=== PATIENT | female | born 1955 | race Caucasian/White ===

== ENCOUNTER → 2022-11-23 | Outpatient (CLI) | payer MEDICARE, BC, SELFPAY ==
[2022-11-23 10:17] LABS: Absolute Lymphocyte Count 1.29 X10^3/uL (0.83-4.51); Absolute Neutrophil Count 3.4 X10^3/uL (2.0-7.7); Basophil# 0.02 X10^3/uL; Basophil% 0.4 % (0-1); Eosinophil# 0.02 X10^3/uL; Eosinophils% 0.4 % (0-5); Hematocrit 49.7 % (37-47); Hemoglobin 15.6 g/dL (12.0-15.0); Lymphocyte # 1.29 X10^3/ul (0.83-4.51); Lymphocyte % 25.5 % (19-41); Mean Corp Hgb Conc 31.4 g/dL (32-36); Mean Corpuscular Volume 92.4 fL (81-99); Mean Platelet Vol. 9.2 fl (6.2-12.0); Monocyte# 0.35 X10^3/uL; Monocyte% 6.9 % (0-10); NRBC Flagged by Analyzer 0 % (0-5); Neutrophil # 3.36 X10^3/uL (2.7-7.7); Neutrophil % 66.4 % (47-70); Platelet Count 304 K/mm3 (150-450); RBC Distribution Width CV 13.2 % (11.6-14.6); RBC Distribution Width SD 44.9 fl (35.1-43.9); Red Blood Count 5.38 M/mm3 (4.2-5.4); White Blood Count 5.1 K/mm3 (4.4-11.0)
[2022-11-23 10:48] LABS: BNP,B-Type NATRIURETIC PEPTIDE 15.7 pg/mL (0-100)
[2022-11-23 11:18] LABS: ALB/GLOB Ratio 1.1 RATIO (0.9-2.4); AST(SGOT) 24 U/L (15-37); Alanine Aminotransfer ALT/SGPT 24 U/L (13-56); Albumin, Serum 4.1 g/dL (3.2-5.0); Alkaline Phosphatase 99 U/L (45-117); Anion Gap 7 (5-15); BUN 20 mg/dL (7-18); BUN/Creat Ratio 24.9 RATIO (10-20); Calcium,Total 10.2 mg/dL (8.5-10.1); Chloride 104 mmol/L (98-107); EST Glomerular Filtration Rate 76 mL/min (>60); Est Glom Filt Rate - Afr Amer 92 mL/min (>60); Globulin 3.9 g/dL (2.2-4.2); Glucose 104 mg/dL (74-106); Magnesium 2.3 mg/dL (1.6-2.6); Potassium 4.8 mmol/L (3.5-5.1); Sodium Level 141 mmol/L (136-145); Thyroid Stim Hormone (TSH) 4.85 uIU/mL (0.358-3.74)
== END | disposition home or self-care (01) ==
LOC: LAB 09:58
PROVIDERS: Referring Provider Nurse Practitioner Family; Visit Provider Nurse Practitioner Family
DX: R06.09 Other forms of dyspnea (principal); I47.20 Ventricular tachycardia, unspecified; I49.1 Atrial premature depolarization; R07.9 Chest pain, unspecified; I49.3 Ventricular premature depolarization
CPT/HCPCS: 36415; 80053; 83735; 83880; 84443; 85025

== ENCOUNTER → 2022-12-01 | Outpatient (CLI) | payer MEDICARE, BC, SELFPAY ==
--- NOTE | 2022-12-01 09:36 | ECHOD_ITS ---
Reason For Study: BRADYCARDIA Procedure This was a 2D Doppler, Color Flow transthoracic echocardiogram. The exam was of adequate technical quality. Exam performed in department. Left Ventricle Normal LV size. Left ventricular systolic function is normal. The estimated ejection fraction is 60 %. No evidence for diastolic dysfunction. No regional wall motion abnormalities noted. Right Ventricle Normal RV size. Normal systolic function. Atria Normal left atrium. Normal right atrium. No doppler evidence for ASD. Mitral Valve There is no mitral annular calcification. Normal mitral valve. Mild (1+) mitral valve insufficiency. Tricuspid Valve Normal tricuspid valve. Mild tricuspid valve insufficiency. Right ventricular systolic pressure estimated to be 26 mmHg. Aortic Valve Trisinus/trileaflet aortic valve. Mild focal aortic valve calcification. Pulmonic Valve The pulmonic valve is not well visualized. Great Vessels Normal sized aortic root. Pericardium/Pleural No pericardial effusion. MMode/2D Measurements & Calculations LVIDd: 4.9 cm IVSd: 0.82 cm Ao root diam: 3.1 cm LVIDs: 3.2 cm LVPWd: 0.74 cm FS: 35.0 % LAV(MOD-sp4): 36.7 ml LVAd ap4: 24.0 cm2 SV(MOD-sp4): 35.8 ml LVLd ap4: 7.3 cm EDV(MOD-sp4): 65.4 ml EDV(sp4-el): 66.9 ml LVAs ap4: 15.0 cm2 LVLs ap4: 6.3 cm ESV(MOD-sp4): 29.6 ml ESV(sp4-el): 30.4 ml EF(MOD-sp4): 54.8 % EF(sp4-el): 54.6 % SV(sp4-el): 36.5 ml LA A4 area: 14.8 cm2 LA dimension(2D): 3.4 cm RA A4 area: 14.8 cm2 Time Measurements MV dec time: 0.28 sec Doppler Measurements & Calculations MV E max cornell: 56.2 cm/sec Lat Peak E' Cornell: 8.6 cm/sec Med Peak E' Cornell: 7.1 cm/sec MV A max cornell: 59.8 cm/sec E/E' lat: 6.5 E/E' med: 7.9 MV E/A: 0.94 MV V2 max: 73.8 cm/sec Ao V2 max: 116.7 cm/sec MV max P.2 mmHg MV dec slope: 209.8 cm/sec2 Ao max P.5 mmHg MV V2 mean: 44.8 cm/sec Ao V2 mean: 79.3 cm/sec MV mean P.89 mmHg Ao mean P.9 mmHg MV V2 VTI: 31.3 cm Ao V2 VTI: 26.6 cm AV (velocity ratio): 0.93 LV V1 max: 106.6 cm/sec MR max cornell: 406.1 cm/sec PA V2 max: 74.4 cm/sec LV V1 max P.5 mmHg MR max P.0 mmHg PA V2 mean: 47.7 cm/sec LV V1 mean P.6 mmHg LV V1 mean: 74.6 cm/sec LV V1 VTI: 24.7 cm TR max cornell: 240.9 cm/sec TR max P.2 mmHg ECHO/Echo Complete Interpretation Summary Left ventricular systolic function is normal. The estimated ejection fraction is 60 %. Mild (1+) mitral valve insufficiency. Mild tricuspid valve insufficiency. Mild focal aortic valve calcification. Right ventricular systolic pressure estimated to be 26 mmHg. No evidence for diastolic dysfunction. Comment: 2D echocardiographic images demonstrate a nonmobile appearing echodens ity in the right atrium near the interatrial septum of uncertain etiology with a differential di agnosis including echocardiographic artifact/reverberation including from a device such as an imp lantable loop recorder, however, other etiologies cannot necessarily be excluded. Ordering Physician: Cameron Dye Referring Physician: NO PCP GIVEN Performed By: Bebe Crocker RCS
== END | disposition home or self-care (01) ==
LOC: CVS 09:35
PROVIDERS: Visit Provider Nurse Practitioner Family
DX: I49.1 Atrial premature depolarization (principal); I47.20 Ventricular tachycardia, unspecified; R42 Dizziness and giddiness; R07.9 Chest pain, unspecified; I49.3 Ventricular premature depolarization
CPT/HCPCS: 93306

== ENCOUNTER → 2022-12-05 | Outpatient (CLI) | payer MEDICARE, BC, SELFPAY ==
--- NOTE | 2022-12-05 09:14 | RAD_ITS ---
INDICATION: Dyspnea on exertion. EXAMINATION/TECHNIQUE: X-RAY - XR Chest 2 Views COMPARISON: None. FINDINGS: LINES/DEVICES: Device projecting over the midline anterior chest wall at the upper sternal level. LUNGS: Mild hyperinflation. No consolidation, edema or effusion. No pneumothorax. MEDIASTINUM AND CARDIOVASCULAR STRUCTURES: Cardiac silhouette not enlarged. Aortic arch calcification. BONES AND SOFT TISSUES: Unremarkable for age. RAD/Chest PA and Lateral IMPRESSION: No acute cardiopulmonary disease. Electronically Signed: Tato Gomez MD at 0:55 EST ,
== END | disposition home or self-care (01) ==
LOC: RAD 09:14
PROVIDERS: Visit Provider Nurse Practitioner Family
DX: R06.09 Other forms of dyspnea (principal); R07.9 Chest pain, unspecified
CPT/HCPCS: 71046

== ENCOUNTER → 2023-10-14 | Outpatient (CLI) | payer MEDICARE, BC, SELFPAY ==
--- OUTSIDE RECORDS SUMMARY | 2023-10-14 11:48 | XMS RPT_ITS | CCD ---
Author Name Unknown Address [address] [place] [address] Organization [facility] Care Team Providers Care Area Supervisor Name Role Phone Mamie ISLAS, Parul Primary Care Provider JOSÉ MIGUEL RICHARDS NP Attending Unavailable JOSÉ MIGUEL RICHARDS NP Primary Care Unavailable JOSÉ MIGUEL RICHARDS MANAGER OF APPLICATION DEVELOPMENT Admitting Unavailable Unavailable Primary Care Provider Unavailabl JOSH Nash Referring Unavailable JOSH HARP Attending Unavailable RENATE MOSES M.D. Attending Unavailable SIENNA OMALLEY Attending Unavailab WINSTON Mcnair Attending Unavailable VERA PEÑA Attending Unavailable VERA PEÑA F Attending Unavailable VERA PEÑA F Attending Unavailable PARUL ADAMS M.D. Attending Unavailable Unavailable Primary Care Provider Unavailabl e BRIGITTE JACOB VERA F Attending UnavailPARUL Kamara MD Primary Care Unavailable PARUL ADAMS MD Primary Care Unavailable PEÑA VERA JACOB F Attending UnavailPARUL Kamara MD Primary Care Unavailable PEÑA VERA JACOB F Attending Unavaila VERA Gonzales PA-C F Attending UnavailPARUL Kamara MD Primary Care Unavailable PARUL ADAMS MD Primary Care Unavailable PARUL ADAMS MD Attending Unavailable PARUL ADAMS MD Primary Care Unavailable PEÑA VERA JACOB F Attending Unavaila katlin PEÑA PA-C VERA F Attending UnavailPARUL Kamara MD Primary Care Unavailable PARUL ADAMS MD Primary Care Unavailable PEÑA VERA JACOB Attending UnavailPARUL Kamara MD Primary Care Unavailable PARUL ADAMS MD Attending Unavailable VEE CURRY Attending Unavailable PEÑA, VERA F Referring Unavailable PEÑA, VERA F Primary Care Unavailable PEÑA VERA F Primary Care Unavailable VIVIAN CHERY Attending Unavailable VEE CURRY Referring Unavailable Allergies Allergy Classification Reported Allergen(s) Allergy Type Date of Onset Reaction(s) Facility (11 sources) Acetaminophen / HYDROcodone; Translations: [HYDROCODONE-ACET AMINOPHEN] Drug Allergy 7 Itching, Other (See Comments) [facility] Work Phone: (11 sources) Azithromycin; Translations: [AZITHROMYCIN] Drug Allergy 7 Itching, Other (See Comments) [facility] (11 sources) cefTRIAXone; Translations: [CEFTRIAXONE] Drug Allergy 7 Dizziness or Vertigo, Other (See Comments), Itching, Intolerance [facility] Work Phone: [phone] 2 (11 sources) Codeine; Translations: [CODEINE] Drug Allergy 7 Hives, Swelling [facility] Work Phone: [phone] 2 (3 sources) HYDROmorphone Drug Allergy 7 Itching, Swelling [facility] (3 sources) Ketorolac Drug Allergy 9 Anaphylaxis [facility] Work Phone: [phone] 2 (11 sources) Meperidine; Translations: [MEPERIDINE] Drug Allergy 7 Itching, Other (See Comments) [facility] Work Phone: [phone] 2 (12 sources) Penicillins; Translations: [PENICILLINS] Propensity to adverse reactions to drug 7 Itching, Rash, Other (See Comments), Unknown [facility] Work Phone: [phone] 2 (11 sources) Procaine; Translations: [PROCAINE] Drug Allergy 1 Hives [facility] Work Phone: [phone] (11 sources) Promethazine; Translations: [PROMETHAZINE] Drug Allergy 7 Other (See Comments), Itching, Unknown [facility] Work Phone: [phone] 2 (3 sources) Sulfonamides (Antibiotic) Propensity to adverse reactions to drug 7 Anaphylaxis [facility] Work Phone: [phone] 2 (8 sources) Ketorolac; Translations: [KETOROLAC] Drug Allergy 7 Anaphylaxis [facility] (8 sources) Sulfonamides (Antibiotic); Translations: [SULFA (SULFONAMIDE ANTIBIOTICS)] Drug Allergy 9 Anaphylaxis [facility] (1 source) Azithromycin Drug Allergy 3 [facility] (1 source) cefTRIAXone Drug Allergy 3 [facility] (1 source) Ciprofloxacin Drug Allergy 3 [facility] (1 source) HYDROmorphone Drug Allergy 3 [facility] (1 source) Ketorolac Drug Allergy 3 [facility] (1 source) Meperidine Drug Allergy 3 [facility] (1 source) Promethazine Drug Allergy 3 [facility] (1 source) Sulfonamides (Antibiotic) Drug allergy (disorder) 3 [facility] Medications Current Medications Medication Drug Class(es) Dates Sig (Normalized) Sig (Original) ALPRAZolam 0.5 mg oral tablet (3 sources) Benzodiazepine take 1 tablet by mouth at bedtime ALPRAZolam (XANAX) 0.5 MG tablet Take 0.5 mg by mouth at bedtime. 0 Active docusate sodium 100 mg oral capsule (3 sources) docusate sodium (COLACE) 100 MG capsule Take 100 mg by mouth as needed for Constipation 0 Active doxycycline hyclate 100 mg oral capsule (7 sources) Tetracycline-class Drug Start: 11-25-2021 doxycycline hyclate (VIBRAMYCIN) 100 MG capsule Completed/Discontinued Medications Medication Drug Class(es) Dates Sig (Normalized) Sig (Original) acetaminophen 325 mg / oxyCODONE hydrochloride 5 mg oral tablet (6 sources) Opioid Agonist Start: 06-30-2017 oxyCODONE-acetamin ophen (PERCOCET) 5-325 mg tablet Take 1 tablet by mouth. 0 06/30/2017 Active Problems Active Problems Problem Classification Problem Date Documented Da te Episodic/Chronic Conditions associated with dizziness or vertigo (2 sources) Dizziness and giddiness; Translations: [Dizziness and giddiness] Onset: 09-03-2023 Episodic Disorders of lipid metabolism (2 sources) Mixed hyperlipidemia; Translations: [Mixed hyperlipidemia] Onset: 2022 Chronic Diverticulosis and diverticulitis (2 sources) Diverticulitis; Translations: [Diverticulitis of intestine, part unspecified, without perforation or abscess without bleeding] Onset: 01-09-2022 01-09-2022 Chronic Esophageal disorders (1 source) Gastro-esophageal reflux disease without esophagitis; Translations: [Gastroesophageal reflux disease, unspecified whether esophagitis present] Onset: 09-22-2023 Chronic Genitourinary symptoms and ill-defined conditions (1 source) Dysuria; Translations: [Dysuria] Episodic Intestinal obstruction without hernia (2 sources) Stricture of colon; Translations: [Other intestinal obstruction unspecified as to partial versus complete obstruction] 01-09-2022 Episodic Other gastrointestinal disorders (1 source) Other dysphagia; Translations: [Esophageal dysphagia] Onset: 10-06-2023 Episodic Other nervous system disorders (1 source) Postoperative pain ; Translations: [Other acute postprocedural pain] Episodic Other nervous system disorders (1 source) Unspecified disturbances of skin sensation; Translations: [Disturbance of skin sensation] Onset: 07-01-2022 Episodic Residual codes; unclassified (3 sources) Contact with and (suspected) exposure to potentially hazardous body fluids; Translations: [Contact with and (suspected) exposure to potentially hazardous body fluids] Onset: 02-25-2022 Episodic Thyroid disorders (2 sources) Hypothyroidism, unspecified; Translations: [Hypothyroidism, unspecified] Onset: 02-16-2023 Chronic Past or Other Problems Problem Classification Problem Date Documented Da te Episodic/Chronic Abdominal pain (2 sources) Lower abdominal pain, unspecified; Translations: [Lower abdominal pain, unspecified] Onset: 06-02-2023 Episodic Other nervous system disorders (7 sources) Skin sensation disturbance; Translations: [Unspecified disturbances of skin sensation] Onset: 07-01-2022 Episodic Unclassified (1 source) *ORAL & IV* LOWER ABD PAIN Onset: 06-05-2023 Results Test Name Value Interpretation Reference Range Facil ity Vital Signs Date Time Vital Sign Value Performing Clinician Paulo ye 07-01-2022 12:01-040 Body height 172.7 cm Josh Harp MD Work Phone: [facility] 07-01-2022 12:01-0400 Body weight 65.32 kg Josh Harp MD Work Phone: [facility] 01-05-2022 11:22-0400 Body height 172.7 cm Chelsie Neves MD Work Phone: [facility] 01-05-2022 11:22-0400 Body mass index (BMI) [Ratio] 22.11 kg/m2 Chelsie Neves MD Work Phone: [facility] 01-05-2022 11:22-0400 Body temperature 97.7 [degF] Chelsie Neves MD Work Phone: [facility] 01-05-2022 11:22-0400 Body weight 65.95 kg Chelsie Neves MD Work Phone: [facility] 01-05-2022 11:22-0400 Diastolic blood pressure 76 mm[Hg] Chelsie Neves MD Work Phone: [facility] 01-05-2022 11:22-0400 Heart rate 72 /min Chelsie Neves MD Work Phone: [facility] 01-05-2022 11:22-0400 Respiratory rate 14 /min Chelsie Neves MD Work Phone: [facility] 01-05-2022 11:22-0400 SaO2% (BldA) [Mass fraction] 97 % Chelsie Neves MD Work Phone: [facility] 01-05-2022 11:22-0400 Systolic blood pressure 130 mm[Hg] Chelsie Neves MD Work Phone: [facility] Encounters Encounter Date Encounter Type Care Provider Facility Start: 10-12-2023 ambulatory VERA Roldan ity:[id number] Start: 09-22-2023 End: 09-22-2023 ambulatory VEE CURRY Facility:[id number] Start: 09-03-2023 End: 09-08-2023 ambulatory VERA PEÑA PA-C Facility:B Start: 06-05-2023 ambulatory VERA Roldan ity:UNI Start: 06-05-2023 End: 06-05-2023 Subsequent hospital visit by physician Provider [facility] Procedures Date Procedure Procedure Detail Performing Clinician Start: 09-22-2023 Follow-up visit Follow Up VEE CURRY Start: 06-05-2023 Ct abdomen & pelvis w/contrast material Vera Peña PA-C Work Phone: Start: 03-16-2023 Dxa bone density nanette dy 1/> sites axial skel Provider [facility] Start: 03-16-2023 Non-invasive physiol ogic study extremity 3 levls Provider [facility] Start: 12-31-2022 PRICILA SCREENING W ARIANE Pr ovider [facility] Start: 09-09-2022 SURGICAL PATHOLOGY Jason Moses MD Work Phone: Start: 01-19-2022 Urnls dip stick/tabl et rgnt auto w/o microscopy Chelsie Neves MD Work Phone: Start: 01-05-2022 Antibody screen Chelsie Neves MD Work Phone: Start: 01-05-2022 Basic metabolic pane l calcium total Rafapatrica Snider G[employer] T[employer]ER [email or web address] Work Phone: Start: 01-05-2022 Blood typing serologic abo Rafa Seakeeper GIMP TACKER - PRESCHOOL ASSISTANT DIRECTOR Work Phone: Start: 01-05-2022 Ecg routine ecg w/le ast 12 lds w/i&r Rafa Seakeeper GIMP TACKER - PRESCHOOL ASSISTANT DIRECTOR Work Phone: Start: 11-25-2021 Mammography Josh betts MD Work Phone: Start: 06-19-2021 Lipid 1996 panel - S geeta or Plasma Provider [facility] Plan of Treatment Date Care Activity Detail Author Start: 06-19-2026 Lipid 1996 panel - Serum or Plasma Lipid Screening [facility] Start: 06-19-2026 LIPID SCREEN LIPID SCREEN [facility] Start: 06-19-2024 DIABETES SCREEN DIABETES SCREEN [facility] Start: 06-19-2024 Diabetes Screening Diabetes Screening [facility] Start: 01-01-2024 Mammography Mammogram Screening [facility] Start: 06-04-2023 Influenza vaccination Influenza Vaccine (#1) [facility] Start: 11-25-2022 Mammography MAMMOGRAM [facility] Start: 10-04-2022 Advance Directive Discussion Advance Directive Discussion [facility] Start: 10-04-2022 Depression Assessment Depression Assessment [facility] Start: 06-04-2022 Influenza vaccination [facility] Start: 02-23-2022 End: 02-23-2022 Patient encounter procedure 02/23/2022 Office Visit Colon and Rectal Surgery Chelsie Neves MD [address] [place] [address] [facility] Start: 01-28-2022 End: 01-28-2022 Patient encounter procedure 01/28/2022 Office Visit Colon and Rectal Surgery Chelsie Neves MD [address] [place] [address] [facility] Start: 01-09-2022 End: 01-09-2022 Patient encounter procedure 01/09/2022 Appointment General Surgery Chelsie Neves MD [address] [place] [address] Arturo Patterson MD [address] [place] [address] [facility] General Surgery Start: 12-03-2021 Annual Wellness Visit (AWV) Annual Wellness Visit (AWV) [facility] Start: 2021 ADVANCE DIRECTIVE DISCUSSION ADVANCE DIRECTIVE DISCUSSION [facility] Start: 2021 BONE DENSITY BONE DENSITY [facility] Start: 2021 Pneumococcal 65+ years Vaccine (1 - PCV) Pneumococcal 65+ years Vaccine (1 - PCV) [facility] Start: 2021 Pneumococcal 65+ years Vaccine (1 of 1 - PPSV23) Pneumococcal 65+ years Vaccine (1 of 1 - PPSV23) [facility] Start: 2021 Pneumococcal Vaccine: 65+ (1 - PCV) Pneumococcal Vaccine: 65+ (1 - PCV) [facility] Start: 2021 PNEUMOCOCCAL: 65+ (1 - PCV) PNEUMOCOCCAL: 65+ (1 - PCV) [facility] Start: 10-04-2021 DEPRESSION ASSESSMENT DEPRESSION ASSESSMENT [facility] Start: 2011 Screening for osteoporosis DEXA (modify frequency per FRAX score) [facility] Start: 2006 Screening for malignant neoplasm of breast Breast cancer screen [facility] Start: 2006 Shingles Vaccine (1 of 2) Shingles Vaccine (1 of 2) [facility] Start: 2006 SHINGRIX VACCINE (1 of 2) SHINGRIX VACCINE (1 of 2) [facility] Start: 2001 COLOGUARD (FIT-DNA) COLOGUARD (FIT-DNA) [facility] Start: 2001 Colonoscopy COLONOSCOPY [facility] Start: 2001 COLORECTAL CANCER SCREENING COLORECTAL CANCER SCREENING [facility] Start: [address] COLONOGRAPHY [facility] Start: 2001 FECAL OCCULT BLOOD FECAL OCCULT BLOOD [facility] Start: 2001 Screening for malignant neoplasm of colon [facility] Start: 2001 SIGMOIDOSCOPY SIGMOIDOSCOPY [facility] Start: 1996 Lipid panel [facility] Start: 1986 Screening for malignant neoplasm of cervix [facility] Start: 1977 Screening for malignant neoplasm of cervix Pap smear [facility] Start: 1975 DTaP/Tdap/Td vaccine (1 - Tdap) DTaP/Tdap/Td vaccine (1 - Tdap) [facility] Start: 1975 Urine microalbumin profile [facility] Start: 1974 Hepatitis C screening Hepatitis C screen [facility] Start: 1971 HIV screening HIV screen [facility] Start: 1968 Depression Screen Depression Screen [facility] Start: 1961 COVID-19 Vaccine (1) COVID-19 Vaccine (1) [facility] Start: 05-20-1957 COVID-19 VACCINE (#1) COVID-19 VACCINE (#1) [facility] Start: 1956 Annual Wellness Visit (AWV) Annual Wellness Visit (AWV) [facility] Start: 1956 Hepatitis C screening Hepatitis C screen [facility] End: 01-19-2022 Bacteria identified in Urine by Culture [facility] Work Phone: Immunizations Immunization Date Immunization Notes Care Provider Reyna del valle 11-30-2017 influenza virus vacc ine, unspecified formulation Provider [facility] Payers Date Payer Category Payer Unknown [id number] 2022 Unknown ANTHEM ANTHEM ME DICARE SUPPLEMENT [id number] 2021-Present [phone] [address] [place] [address] Indemnity [id number] 2021 Medicare MEDICARE MEDICAR E A AND B [id number] 2021-Present [phone] [place] [address] Medicare [id number] 2021 Medicare [id number] 1955 Unknown [id number] [id number] 1955 Unknown [id number] 2.16.840.1.740989.3.579.2. 1956 Unknown [id number] 2.16.840.1.093124.3.579.2. 1955 Unknown [id number] 2.16.840.1.026223.3.579.2. 1955 Unknown [id number] 2.16.840.1.374913.3.579.2.62 1955 Unknown [id number] 2.16.840.1.592979.3.579.2.62 1955 Unknown [id number] 2.16.840.1.879027.3.579.2.62 1955 Unknown [id number] 2.16.840.1.544525.3.579.2.62 1955 Unknown [id number] 2.16.840.1.310577.3.579.2. 1955 Unknown [id number] 2.16.840.1.147136.3.579.2.627 1955 Unknown [id number] 2.16.840.1.462490.3.579.2.627 Medicaid [id number] Unknown [id number] 2.16.840.1.051720.3.579.2.283 Unknown [id number] Unknown [id number] 2.16.840.1.369696.3.579.2.283 Unknown [id number] 2.16.840.1.859131.3.579.2.528 Unknown [id number] 2.16.840.1.433114.3.579.2.283 Unknown [id number] 2.16.840.1.331408.3.579.2.283 Unknown [id number] 2.16.840.1.458790.3.579.2.283 Unknown [id number] [id number] Social History Date Type Detail Facility Start: 01-05-2022 Tobacco smoking stat [facility] Ex-smoker [employer] Work Phone: History of tobacco use Cigarette Smoker [facility] [employer] Work Phone: Start: 03-30-2021 End: 01-05-2022 Cigarettes smoked current (pack per day) - Reported 1.[employer] Work Phone: Start: 04-22-2021 End: 01-05-2022 Tobacco use and exposure Smokeless tobacco non-user [employer] Work Phone: Start: 05-26-2021 End: 01-05-2022 Alcohol intake Current drinker of alcohol (finding) [employer] Work Phone: Start: 01-05-2022 Tobacco Comment quit 19 years ago [facility] Work Phone: Start: 1955 Sex Assigned At Not on file [facility] [employer] Work Phone: Start: 12-26-2021 End: 07-01-2022 Exposure to SARS-CoV-2 (event) Not sure [facility] Work Phone: Start: 04-22-2021 Tobacco smoking stat us NHIS Never smoked tobacco [facility] Start: 04-24-2021 History SDOH Alcohol Comment rarely [facility] Start: 03-30-2021 End: 05-26-2021 Tobacco use panel [facility] National Score (1-10 0), lower number is lower risk Not on file [facility] Clinical Note 04-09-2023 Note Date & Type Note Facility 04-09-[address] [address] HEALTH INFORMATION MANAGEMENT OPERATIVE REPORT : [id number] Signed Patient: JENNIFER GUPTA Acct:[id number]: [id number] : 1955 Sex: F Loc: SDS ADM Date: Room/Bed: DISC Date: 02/26/23 DATE: 02/26/2023 PREOPERATIVE DIAGNOSIS: Deformity, left great toenail. POSTOPERATIVE DIAGNOSIS: Deformity, left great toenail. PROCEDURE: Biopsies left great toenail. ANESTHESIA: MAC. ESTIMATED BLOOD LOSS: Minimal. TOURNIQUET: No tourniquet. SPECIMEN: Left great toenail. HISTORY: The patient had a dark area within the left great toenail. Decision was made to remove to biopsy, rule out malignant melanoma. DESCRIPTION OF PROCEDURE: The patient was taken to the OR, left foot prepped and draped in sterile fashion. Attention was directed to the left great toe, obvious dark area in the lateral aspect of the nail was noted. Nail was avulsed and sent for pathological analysis. Examination of the underlying nail bed showed no discoloration or deformity. Dressing was applied. The patient tolerated surgery and anesthesia well and was taken to recovery room in good condition, capillary fill time immediate to the left foot. ROGERS TID: [id number] Dictated By: WINSTON BLACK DPM Signed By: WINSTON BLACK DPM < > Co Signed By: Dictated Date/Time: 02/26/23 1151 Transcribed Date/Time: 02/26/[address]: Signed Date/Time: 04/09/23 1019 Co Signed Date/Time: CC: WINSTON BLACK DPM [facility] Progress note 07-01-2022 Note Date & Type Note Facility 07-01-2022 Note HNO ID: [id number] Author: Josh Harp MD Service: ? Author Type: Physician Type: Progress Notes Filed: 07/01/2022 12:46 PM Note Text: Test: EMG Ordering Provider: Josh Harp MD Testing Provider: Josh Harp Prior Authorization: No Finding: See paper report attached Josh Harp MD [facility] History of Present illness Narrative 07-01-2022 Josh Harp MD - 07/01/2022 12:46 PM EDT Note Date & Type Note Facility 07-01-2022 History of Presen t illness Narrative Test: EMG Ordering Provider: Josh Harp MD Testing Provider: Josh Harp Prior Authorization: No Finding: See paper report attached Josh Harp MD documented in this encounter [facility] Discharge summary note 01-13-2022 Note Date & Type Note Facility 01-13-2022 Note Physician Discharge Summary Patient ID: Jennifer Gupta [id number] y.o. 1955 Admit date: 01/09/2022 Discharge date: 01/13/22 Admitting Physician: Arturo Patterson MD Discharge Physician: Arturo Patterson MD Admission Diagnoses: Active Problems: Diverticulitis Sigmoid stricture (HCC) Resolved Problems: * No resolved hospital problems. * Discharge Diagnoses: Active Problems: Diverticulitis Sigmoid stricture (HCC) Resolved Problems: * No resolved hospital problems. * Admission Condition: good Discharged Condition: good Indication for Admission: Diverticulitis [K57.92] Hospital Course: Pt taken to OR for Robotic sigmoidectomy with colorectal anastamosis with Dr Neves and tolerated procedure without any complications. Immediately post-op, pt was extubated and transferred to PACU in stable condition. After PACU criteria met and within 24 hrs of procedure, patient was transferred to floor. Throughout letty-operative course, there was monitoring of vital signs, urine output and clinical status of patient. Laboratory values were reviewed and the patients electrolytes were repleted as necessary. Diet was subsequently advanced and by the day of discharge patient was ambulating, voiding and tolerating PO without difficulty. Pain was well controlled with oral medications by time of discharge. Disposition: home Patient Instructions: Medication List ASK your doctor about these medications Advair Diskus 250-50 MCG/DOSE Aepb Generic drug: fluticasone-salmeterol ALPRAZolam 0.5 MG tablet Commonly known as: XANAX Cholecalciferol 50 MCG (1999 UT) Tabs dicyclomine 10 MG capsule Commonly known as: BENTYL docusate sodium 100 MG capsule Commonly known as: COLACE doxycycline hyclate 100 MG capsule Commonly known as: VIBRAMYCIN ESTRACE VAGINAL 0.1 MG/GM vaginal cream Generic drug: estradiol levothyroxine 125 MCG tablet Commonly known as: SYNTHROID magnesium oxide 400 MG tablet Commonly known as: MAG-OX * metroNIDAZOLE 500 MG tablet Commonly known as: FLAGYL * metroNIDAZOLE 500 MG tablet Commonly known as: Flagyl On the day prior to surgery take one tablet at 1:00pm; one tablet at 2:00pm; one tablet at 11:00pm neomycin 500 MG tablet Commonly known as: MYCIFRADIN On the day prior to surgery take two tablets at 1:00pm; two tablets at 2:00pm; two tablets at 11:00pm OMEGA-3-6-9 PO POLYETHYLENE GLYCOL 3350 PO PROBIOTIC DAILY PO prochlorperazine 10 MG tablet Commonly known as: COMPAZINE TURMERIC-CASSI PO Xopenex 0.63 MG/3ML nebulization Generic drug: levalbuterol * This list has 2 medication(s) that are the same as other medications prescribed for you. Read the directions carefully, and ask your doctor or other care provider to review them with you. Activity: activity as tolerated, no heavy lifting, no driving on narcotic pain medications Diet: GI soft, advance to regular as tolerated Wound Care: Steri strips will be present. These can be removed 5 days after surgery if they do not fall off on their own. Ok to shower, but no baths or swimming pools. Allow soap and water to run over incision site and pat dry. Follow-up with your surgeon within 2 weeks for post-operative follow up. Call office phone number to schedule your appointment. DC time 30 min Signed: Alida Coronel MD 01/13/2022 8:42 AM [facility] Discharge instructions 01-05-2022 Instructions Note Date & Type Note Facility 01-05-2022 Hospital Discharg e instructions Ev Greco RN - 01/05/2022 Shower with the Hibiclens product given to you in Pre-Admission Testing. Follow the instructions and wear clean clothes to bed and clean linen on the bed the night before surgery. Follow the instructions and shower the morning of surgery and wear clean, comfortable clothes to the hospital. Prior to surgery all jewelry and body piercings must be removed. Please bring your [facility] Surgical Information folder on the day of surgery. Please keira the last dose taken (date and time ) on your Daily Medications List provided in your After Visit Summary. Please bring a photo ID and insurance information No smoking, no alcohol 24 hours prior to surgery. ONLY TAKE the following medications the morning of your surgery- ADVAIR, XOPENEX, COMPAZINE, SYNTHROID, BENTYL You may take Tylenol (Acetaminophen) if needed for pain. No Motrin, Ibuprofen, or Advil 24 hours prior to surgery, or longer if instructed by your surgeon. No Aleve or Naprosyn 3 days prior to surgery, or longer if instructed by your surgeon. DO NOT take aspirin or aspirin containing products for 5 days before surgery, or longer if instructed by your surgeon. Additional instructions: Follow your surgeon's diet and bowel prep. instructions. You will receive a reminder call the day before surgery with your Same Day Surgery arrival time. If you have specific questions, please call your surgeon. You may use the [employer] parking located at the main entrance on [address] [facility] and take the H elevator to the first floor for same day surgery. Take a left after exiting the elevator and check in at the desk. You may use the parking in the Main deck. Take the level one bridge to the H building and follow the signs for same day surgery. Check in at the desk. 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 Expl anation ACP-Advance Directive 01/05/2022 12:00 AM Latest Code Status on File Code Status Date Activated Date Inactivated Comments Full Code 01/09/2022 8:24 PM 01/13/2022 8:31 PM Full Code 01/09/2022 11:33 AM 01/09/2022 8:15 PM Summary Purpose Family History No Family History Records FoundNo Family History Records FoundNo Family History Records FoundNo Family History Records FoundNo Family History Records FoundNo Family History Records FoundNo Family History Records FoundNo Family History Records Found Additional Source Comments Care Teams (unrecognized sec tion and content) Area Supervisor Relationship Specialty Start Date End Date Parul Hatch MD [address] [place] [address] PCP - General Family Medicine 12/02/21 Area Supervisor Relationship Specialty Start Date End Date Parul Hatch MD [address] [place] [address] PCP - General Family Medicine 12/02/21 INFORMATION SOURCE (unrecogn ized section and content) DATE CREATED AUTHOR AUTHOR'S ORGANIZ ATION 03/11/2022 [facility] DATE CREATED AUTHOR AUTHOR'S ORGANIZ ATION 07/06/2022 [facility] DATE CREATED AUTHOR AUTHOR'S ORGANIZ ATION 09/24/2022 [facility] DATE CREATED AUTHOR AUTHOR'S ORGANIZ ATION 04/10/2023 [facility] DATE CREATED AUTHOR AUTHOR'S ORGANIZ ATION 06/14/2023 [facility] DATE CREATED AUTHOR AUTHOR'S ORGANIZ ATION 09/10/2023 [facility] ([place] DATE CREATED AUTHOR AUTHOR'S ORGANIZ ATION 10/13/2023 [facility] Source Comments (unrecognize d section and content) In the event this informatio n is protected by the Federal Confidentiality of Alcohol and Drug Abuse Patient Records regulations: The Federal rules restrict any use of the information to criminally investigate or prosecute any alcohol or drug abuse patient.[facility] Reason for Visit (unrecogniz ed section and content) FOR RECORDS PERTAINING TO PATIENTS WHO ARE OR HAVE BEEN ENROLLED IN A CHEMICAL DEPENDENCY/SUBSTANCEABUSE PROGRAM, SOME INFORMATION MAY BE OMITTED. This clinical summary was aggregated from multiple sources. Caution should be exercised in using it in the provision of clinical care. This summary normalizes information from multiple sources, and as a consequence, information in this document may materially change the coding, format and clinical context of patient data. In addition, data may be omitted in some cases. CLINICAL DECISIONS SHOULD BE BASED ON THE PRIMARY CLINICAL RECORDS. [employer]. provides no warranty or guarantee of the accuracy or completeness of information in this document.
== END | disposition home or self-care (01) ==
LOC: PSN 10:37
PROVIDERS: Referring Provider Nurse Practitioner Family; Visit Provider Nurse Practitioner Family
DX: I49.3 Ventricular premature depolarization (principal); I47.20 Ventricular tachycardia, unspecified; R00.1 Bradycardia, unspecified; R00.2 Palpitations; R42 Dizziness and giddiness
CPT/HCPCS: 93225; 93226

== ENCOUNTER → 2024-01-25 | Outpatient (CLI) | payer MEDICARE, BC, SELFPAY ==
[2024-01-25 11:09] LABS: AST(SGOT) 21 U/L (15-37); Alanine Aminotransfer ALT/SGPT 22 U/L (13-56); Albumin, Serum 3.6 g/dL (3.2-5.0); Alkaline Phosphatase 78 U/L (45-117); Bilirubin, Direct 0.13 mg/dL (0.00-0.30); Cholesterol 216 mg/dL (200); Globulin 3.4 g/dL (2.2-4.2); High Density Lipoprotein 70 mg/dL; Triglycerides 65 mg/dL; Very Low Density Lipoprotein 13 mg/dL (5-40)
== END | disposition home or self-care (01) ==
PROVIDERS: Referring Provider Nurse Practitioner Family; Visit Provider Nurse Practitioner Family
DX: R07.9 Chest pain, unspecified (principal); I47.20 Ventricular tachycardia, unspecified; I49.1 Atrial premature depolarization; I49.3 Ventricular premature depolarization
CPT/HCPCS: 36415; 80061; 80076

== ENCOUNTER → 2024-02-08 | Outpatient (CLI) | payer MEDICARE, BC, SELFPAY | END | disposition home or self-care (01) | PROVIDERS: Visit Provider Podiatrist Foot & Ankle Surgery | DX: L97.529 Non-pressure chronic ulcer of other part of left foot with unspecified severity (principal) | CPT/HCPCS: 87070; 87075; 87077; 87101; 87186; 87205 ==

== ENCOUNTER → 2024-12-19 | Outpatient (CLI) | payer MEDICARE, BC, SELFPAY | END | disposition home or self-care (01) | LOC: LAB 11:41 | PROVIDERS: Referring Provider Podiatrist Foot & Ankle Surgery; Visit Provider Podiatrist Foot & Ankle Surgery | DX: M10.9 Gout, unspecified (principal) | CPT/HCPCS: 36415; 84550 ==

== ENCOUNTER → 2025-03-29 | Outpatient (CLI) | payer MEDICARE, BC, SELFPAY ==
--- NOTE | 2025-03-29 13:47 | ECHOD_ITS ---
Reason For Study Reason For Study: Arrhythmia Procedure This was a 2D Doppler, Color Flow transthoracic echocardiogram. Exam performed in department. Left Ventricle Normal LV size. The left ventricular ejection fraction is 60 %. Stage 1 diastolic dysfunction. No regional wall motion abnormalities noted. Right Ventricle Normal RV size. Normal systolic function. Atria Normal left atrium. Normal right atrium. Mitral Valve Normal mitral valve. Tricuspid Valve Normal tricuspid valve. Mild (1+) tricuspid valve insufficiency. Pulmonary artery systolic pressure is 36 mmHg. Aortic Valve Trisinus/trileaflet aortic valve. Pulmonic Valve Normal pulmonic valve. Great Vessels Normal aortic root. The pulmonary artery is normal size. Inferior vena cava collapse with respiration. Pericardium/Pleural No pericardial effusion. MMode/2D Measurements & Calculations LVIDd: 4.7 cm IVSd: 1.1 cm Ao root diam: 3.3 cm LVIDs: 3.4 cm LVPWd: 0.98 cm RVDd: 3.7 cm FS: 27.7 % LAV(MOD-bp): 37.7 ml LVAd ap4: 26.7 cm2 SV(MOD-sp4): 45.0 ml LAV(MOD-bp) Indexed: 20.6 ml/m2 LVLd ap4: 7.3 cm SI(MOD-sp4): 24.6 ml/m2 LAV(MOD-sp2): 33.3 ml EDV(MOD-sp4): 77.2 ml LAV(MOD-sp4): 42.6 ml EDV(sp4-el): 82.2 ml LVAs ap4: 15.5 cm2 LVLs ap4: 6.2 cm ESV(MOD-sp4): 32.2 ml ESV(sp4-el): 32.8 ml EF(MOD-sp4): 58.3 % EF(sp4-el): 60.1 % SV(sp4-el): 49.4 ml LA A4 area: 16.6 cm2 LA dimension(2D): 3.4 cm RA A4 area: 16.8 cm2 TAPSE: 1.7 cm Time Measurements MV dec time: 0.23 sec Doppler Measurements & Calculations MV E max cornell: 60.2 cm/sec Lat Peak E' Cornell: 10.3 cm/sec Med Peak E' Cornell: 7.1 cm/sec MV A max cornell: 74.3 cm/sec E/E' lat: 5.8 E/E' med: 8.5 MV E/A: 0.81 MV V2 max: 93.2 cm/sec MV P1/2t max cornell: 84.1 cm/sec Ao V2 max: 140.4 cm/sec MV max P.5 mmHg MV P1/2t: 89.7 msec Ao max P.9 mmHg MV V2 mean: 42.8 cm/sec Ao V2 mean: 96.0 cm/sec MV mean P.92 mmHg MV dec slope: 274.6 cm/sec2 Ao mean P.2 mmHg MV V2 VTI: 31.5 cm MVA(P1/2t): 2.5 cm2 Ao V2 VTI: 36.0 cm AV (velocity ratio): 0.73 LV V1 max: 103.3 cm/sec MR max cornell: 457.3 cm/sec PA V2 max: 91.6 cm/sec LV V1 max P.3 mmHg MR max P.6 mmHg LV V1 mean P.3 mmHg LV V1 mean: 70.2 cm/sec LV V1 VTI: 26.5 cm TR max cornell: 283.4 cm/sec TR max P.1 mmHg ECHO/Echo Complete Interpretation Summary The left ventricular ejection fraction is 60 %. Normal LV size. Stage 1 diastolic dysfunction. Pulmonary artery systolic pressure is 36 mmHg. Ordering Physician: Severiano Jerry Referring Physician: Severiano Jerry Performed By: Familia Mccarthy RCS
== END | disposition home or self-care (01) ==
LOC: CVS 13:47
PROVIDERS: PCP Family Medicine; Referring Provider Internal Medicine Cardiovascular Disease; Visit Provider Internal Medicine Cardiovascular Disease
DX: I47.29 Other ventricular tachycardia (principal)
CPT/HCPCS: 93306

== ENCOUNTER → 2025-09-24 | Outpatient (CLI) | payer MEDICARE, BC, SELFPAY ==
[2025-09-24 12:58] LABS: Hematocrit 40.2 % (37-47); Hemoglobin 12.8 g/dL (12.0-15.0); Immature Granulocytes Count 0.010 X10^3/uL (0.0-0.0); Mean Corp Hgb Conc 31.8 g/dL (32-36); Mean Corpuscular Volume 84.6 fL (81-99); Mean Platelet Vol. 9.3 fl (6.2-12.0); NRBC Flagged by Analyzer 0 % (0-5); Platelet Count 253 K/mm3 (150-450); RBC Distribution Width CV 13.4 % (11.6-14.6); RBC Distribution Width SD 41.6 fl (35.1-43.9); Red Blood Count 4.75 M/mm3 (4.2-5.4); White Blood Count 4.1 K/mm3 (4.4-11.0)
[2025-09-24 13:47] LABS: AST(SGOT) 27 U/L (<=31); Alanine Aminotransfer ALT/SGPT 9 U/L (<=34); Albumin, Serum 4.2 g/dL (3.4-4.8); Alkaline Phosphatase 95 U/L (35-104); Anion Gap 13 (7-18); BUN 11 mg/dL (4-19); BUN/Creat Ratio 14.3 RATIO (10-20); Bilirubin, Direct 0.18 mg/dL (0.00-0.30); Calcium,Total 9.6 mg/dL (7.6-11.0); Carbon Dioxide 25.7 mmol/L (20.0-29.0); Chloride 103 mmol/L (96-106); Globulin 2.7 g/dL (2.2-4.2); Glucose 84 mg/dL (70-99); Magnesium 2.1 mg/dL (1.5-2.2); Potassium 4.2 mmol/L (3.5-5.1)
[2025-09-24 14:16] LABS: Cholesterol 219 mg/dL (<=200); Low Density Lipoprotein Calc. 128 mg/dL; Triglycerides 102 mg/dL; Very Low Density Lipoprotein 20 mg/dL (5-40); cholesterol:hdl ratio screen 2.99
== END | disposition home or self-care (01) ==
LOC: LAB 12:14
PROVIDERS: PCP Family Medicine; Referring Provider Nurse Practitioner Family; Visit Provider Nurse Practitioner Family
DX: E78.00 Pure hypercholesterolemia, unspecified (principal); I47.20 Ventricular tachycardia, unspecified; R00.2 Palpitations; R42 Dizziness and giddiness; I49.9 Cardiac arrhythmia, unspecified; I49.3 Ventricular premature depolarization; I49.1 Atrial premature depolarization
CPT/HCPCS: 36415; 80048; 80061; 80076; 83735; 84443; 85025